=== PATIENT | female | born 1960 | race Caucasian/White ===

== ENCOUNTER → 2021-01-04 | Outpatient (CLI) | payer SELFPAY | END | disposition home or self-care (01) | LOC: LAB SHORT 14:01 | DX: Z13.220 Encounter for screening for lipoid disorders (principal); M25.50 Pain in unspecified joint ==

== ENCOUNTER → 2024-01-09 | Outpatient (CLI) | payer BC, MEDICARE ==
[~2024-01-09] MED LIST: HYDR1TAB94 PO; MELO7.5 PO; Ondansetron Odt8 MG MM
[2024-01-09 15:20] LABS: C-REACTIVE PROTEIN, EXT RANGE 0.331 mg/dL (0.000-0.300); Very Low Density Lipoprot Chol 18 mg/dL (6-32)
[2024-01-09 15:23] LABS: LDL/HDL RATIO 1.6
[2024-01-09 15:24] LABS: Alanine Aminotransfer (ALT/SGP 39 U/L (12-78); Albumin/Globulin Ratio 1.5 (0.8-1.8); Alk Phos 76 U/L (50-136); Anion Gap 11 mmol/L (3-11); Aspartate Aminotrans (AST/SGOT 24 U/L (12-37); Bilirubin, Total 1.4 mg/dL (0.1-1.0); Blood Urea Nitrogen 24 mg/dL (8-24); Bun/Creatinine Ratio 43.4 (12.0-20.0); CHOL/HDL RATIO 2.8; CO2, Blood 28 mmol/L (21-32); Calcium, Blood 8.8 mg/dL (8.5-10.1); Chloride, Blood 107 mmol/L (98-108); Cholesterol 193 mg/dL (50-200); Creatinine, Blood 0.55 mg/dL (0.40-1.00); Globulin, Blood 2.7 g/dL (2.2-4.0); Glomerular Filtration Rate 102 (60-); Glucose, Blood 90 mg/dL (70-99); HDL Cholesterol 68 mg/dL (>39); Low Density Lipoprotein Chol 107 mg/dL (0-110); Potassium, Blood 4.1 mmol/L (3.5-5.5); Sodium, Blood 142 mmol/L (136-145); Total Protein, Blood 6.7 g/dL (6.4-8.2); Triglycerides 91 mg/dL (30-160)
== END | disposition home or self-care (01) ==
LOC: LAB SHORT 13:47 → LAB 13:47
PROVIDERS: Hospitalist
DX: E80.6 Other disorders of bilirubin metabolism (principal); M54.50 Low back pain, unspecified; E78.1 Pure hyperglyceridemia
CPT/HCPCS: 80053; 80061; 85651; 86140

== ENCOUNTER 2024-01-13 08:50 | Emergency (ER) | payer MEDICARE ==
[~2024-01-13] VITALS: Ht 180.3 cm; Wt 97.5 kg
[2024-01-13] MEDS ORDERED: MELO7.5 PO (09:10)
[2024-01-13 09:28] LABS: BASOPHILS ABSOLUTE AUTO 0.05 K/mm3 (0.00-0.23); BASOPHILS PERCENT AUTO 1 % (0-2); EOSINOPHILS ABSOLUTE AUTO 0.28 K/mm3 (0.00-0.68); EOSINOPHILS PERCENT AUTO 4 % (0-6); Hematocrit 45.9 % (33.0-51.0); Hemoglobin 15.1 g/dL (11.5-16.0); IMMATURE GRAN ABSOLUTE AUTO 0.01 K/mm3 (0.00-0.10); IMMATURE GRAN PERCENT AUTO 0 % (0-1); LYMPHOCYTES ABSOLUTE AUTO 1.57 K/mm3 (0.84-5.20); LYMPHOCYTES PERCENT AUTO 22 % (21-46); MONOCYTES ABSOLUTE AUTO 0.48 K/mm3 (0.16-1.47); MONOCYTES PERCENT AUTO 7 % (4-13); Mean Corpuscular HGB 30.3 pg (26.0-34.0); Mean Corpuscular HGB Conc 32.9 g/dL (31.5-36.5); Mean Corpuscular Volume 92 fL (80-100); Mean Platelet Volume 10.6 fL (9.1-12.4); NEUTROPHILS ABSOLUTE AUTO 4.72 K/mm3 (1.96-9.15); NEUTROPHILS PERCENT AUTO 66 % (41-73); Platelet Count 207 K/mm3 (150-400); RDW Coefficient Variation 12.5 % (11.7-14.2); RDW Standard Deviation 42.5 fL (35.1-46.3); Red Blood Cell Count 4.99 M/mm3 (3.80-5.20); White Blood Cell Count 7.11 K/mm3 (4.00-11.30)
[2024-01-13] MEDS ORDERED: Ketorolac Tromethamine 30mg Vial IV ONE (09:35)
[2024-01-13] MEDS ORDERED: NS 1,000 ML IV SCH (09:35)
[2024-01-13 09:43] LABS: Source, Urine Clean Catch
[2024-01-13 09:46] LABS: Albumin, Blood 3.9 g/dL (3.4-5.0); Albumin/Globulin Ratio 1.2 (0.8-1.8); Bun/Creatinine Ratio 36.9 (12.0-20.0); Creatinine, Blood 0.57 mg/dL (0.40-1.00); Globulin, Blood 3.3 g/dL (2.2-4.0); Potassium, Blood 3.9 mmol/L (3.5-5.5); Total Protein, Blood 7.2 g/dL (6.4-8.2)
[2024-01-13 09:47] LABS: Appearance, Urine Clear (Clear); Bilirubin, Urine Neg (Neg); Blood, Urine 1+ (Neg); Color, Urine Yellow (P-Yellow); Glucose Qualitative, Urine Neg (Neg); Ketones, Urine Neg (Neg); Leukocyte Esterase, Urine Neg (Neg); Nitrite, Urine Neg (Neg); Protein, Urine Neg (Neg); Urobilinogen, Urine NORM (Normal)
[2024-01-13 09:55] LABS: Bacteria Rare /hpf; Squamous Epithelial Cells Rare /hpf (Few); White Blood Cells, Urine 0-2 /hpf (0-5)
[2024-01-13] MEDS ORDERED: Ondansetron HCl 2 MG / ML 2ML Vial IV PRN (10:40)
[2024-01-13] MEDS ORDERED: FentaNYL Citrate 50 MCG/ML 2 ML Injection IV PRN (10:40)
[2024-01-13 10:45] VITALS: BP 157/53
[2024-01-13] MEDS ORDERED: Ondansetron Odt8 MG MM (11:16)
[2024-01-13] MEDS ORDERED: HYDR1TAB94 PO (11:16)
== END 2024-01-13 11:27 | disposition home or self-care (01) ==
LOC: ER 08:50
PROVIDERS: Emergency Medicine
DX: R10.32 Left lower quadrant pain (principal); E80.7 Disorder of bilirubin metabolism, unspecified; Z88.5 Allergy status to narcotic agent; Z79.2 Long term (current) use of antibiotics
CPT/HCPCS: 74177; 80053; 81001; 85025; J1885; J2405; J3010; J7030; Q9967

== ENCOUNTER → 2024-01-15 | Outpatient (CLI) | payer MEDICARE | END | disposition home or self-care (01) | LOC: LAB SHORT 17:20 | DX: M54.16 Radiculopathy, lumbar region (principal) | CPT/HCPCS: 85651; 86140 ==